=== PATIENT | female | born 1985 | race Caucasian/White ===

== ENCOUNTER 2020-12-22 07:23 | Emergency (ER) | payer OTHER, SELFPAY ==
--- NOTE | ~2020-12-22 | XR_ITS ---
EXAMINATION: XR ANKLE, LEFT CLINICAL INFORMATION: Fall with ankle injury COMPARISON: None TECHNIQUE: AP, lateral, and mortise views of the left ankle. FINDINGS: No significant soft tissue swelling. No radiographic evidence of acute displaced fracture or subluxation. No ankle joint effusion. No significant degenerative changes. There is a bilobed soft tissue calcification seen within the medial soft tissues of the lower one third lower leg measuring 1.2 cm in craniocaudal extent. XR/XR ankle LT 2V IMPRESSION: 1. No radiographic evidence of acute fracture subluxation. 2. Bilobed calcification within the soft tissues of the lower leg, nonspecific and of uncertain clinical significance.
[2020-12-22 07:37] VITALS: BP 151/73; PULSE 90; RESP 18; TEMP 36.7; O2SAT 100; BMI 41.2
--- NOTE | 2020-12-22 08:45 | ED.LOWEXIN ---
HPI - Extremity Injury (Lower) General Chief Complaint: Extremity Injury, Lower Stated Complaint: lt ankle injury Time Seen by Provider: 12/22/20 08:45 Source: patient Mode of arrival: ambulatory Limitations: no limitations History of Present Illness HPI Narrative: Walking out of her house down a steep step and her leg twisted and ended up underneath her. Patient complaining mostly of ankle pain and achilles pain. MD complaint: ankle injury Onset (ago): minute(s) Injury: Left: ankle Type of Injury: inversion Place: home Severity: moderate Associated symptoms: snap/pop sensation Related Data Previous Rx's Medication Instructions Recorded naproxen 500 mg tablet (Naprosyn) 500 mg PO BID #20 tab 12/22/20 Allergies Allergy/AdvReac Type Severity Reaction Status Date / Time ibuprofen AdvReac Gastrointestinal Verified 12/22/20 07:35 Upset strawberries Allergy Unknown Unknown Uncoded 12/22/20 07:35 Review of Systems Constitutional: Constitutional: Reports no additional constitutional complaints Eyes: Eyes: Reports no additional eye complaints ENT: Denies dizziness Cardiovascular: Cardiovascular: Reports no additional cardiovascular complaints Respiratory: Respiratory: Reports as per HPI Gastrointestinal: Gastrointestinal: Reports no additional gastrointestinal complaints Genitourinary: Genitourinary: Reports no additional female genitourinary complaints Musculoskeletal: Musculoskeletal: Reports no additional musculoskeletal complaints Integumentary/Breasts: Skin/Breast: Denies rash Neurologic: Reports system reviewed and no additional complaints, except as documented, Denies dizziness and Denies Sensory deficit (Neuro) Psychiatric: Psychiatric: Denies anxiety PMFSH Past Medical History Medical History No known health problems Social History Social History Advance Directives: No Patient : No Physical Exam Vital Signs: Vital Signs: Last Vital Signs Temp 98.1 F 12/22/20 07:37 Pulse 90 12/22/20 07:37 Resp 18 12/22/20 07:37 BP 151/73 H 12/22/20 07:37 Pulse Ox 100 12/22/20 07:37 Body Mass Index 41.2 Const: General: healthy appearing Nutritional Appearance: average body habitus Orientation/consciousness: oriented to person and patient oriented x3 Limitations: no limitations HENMT: Head: Yes normal to inspection Ears: external ears normal General nose exam: Normal external nose present Mouth: Normal oral and palatal mucosa present and oropharynx normal Throat: Yes posterior oropharynx normal Eyes: General: appearance normal, both eyes and all related structures Neck: Other: supple Neck: Yes normal visual inspection Chest: Chest palpation & inspection: normal inspection of the chest Resp: Auscultation: clear to auscultation bilaterally Cardio: Jugular venous distension: no JVD Rate: regular rate Rhythm: regular rhythm Heart sounds: S1 normal heart sound present and S2 normal heart sound present GI: Inspection: Yes normal to inspection Palpation (GI): Soft to palpation, nontender and No hepatosplenomegaly present Auscultation: normal bowel sounds : General: Yes no CVA tenderness Back/Spine/Pelvis: Back: no CVA tenderness Skin: General skin exam: no rashes or lesions noted Neuro: General: oriented to person and patient oriented x3 Cranial nerves: Yes CN's II-XII intact bilaterally Motor exam (neuro): 5/5 motor strength present throughout Sensory Exam: No Sensory deficit (Neuro) Extrem: Other: ankle: left lateral malleolous swelling with tenderness, Good DP and PT tenderness Psych: Appearance: grossly normal Course Reevaluation(s) Reevaluation #1: patient wth ankle sprain will place in splint and crutches Time: 08:52 MDM - Extremity Injury (Lower) Imaging Data ankle xray: Radiologist's impression: IMPRESSION: ? 1. No radiographic evidence of acute fracture subluxation. 2. Bilobed calcification within the soft tissues of the lower leg, nonspecific and of uncertain clinical significance. Discharge Plan Discharge Clinical Impression: Ankle sprain and strain Patient Disposition: Home, Self-Care Instructions: Ankle Sprain (ED), Crutch Instructions (ED) Prescriptions: New naproxen [Naprosyn] 500 mg tablet 500 mg PO BID Qty: 20 RF: 0 Referrals: Physician,None [Primary Care Provider] - 1 week
== END 2020-12-22 09:24 | disposition home or self-care (01) ==
PROVIDERS: Emergency Provider Emergency Medicine
DX: S93.402A Sprain of unspecified ligament of left ankle, initial encounter (principal); S96.912A Strain of unspecified muscle and tendon at ankle and foot level, left foot, initial encounter; X50.1XXA Overexertion from prolonged static or awkward postures, initial encounter; Y93.01 Activity, walking, marching and hiking; Y92.009 Unspecified place in unspecified non-institutional (private) residence as the place of occurrence of the external cause; Y99.9 Unspecified external cause status
CPT/HCPCS: 73600; 99283; 99284

== ENCOUNTER 2021-08-11 14:03 | Emergency (ER) | payer OTHER, SELFPAY ==
[2021-08-11 14:16] VITALS: BMI 41.0
[2021-08-11 14:56] LABS: COVID-19 Test Positive (Negative); IDNOW Serial# 16C4AD1C
[2021-08-11 15:03] LABS: Influenza A Negative (Negative); Influenza B2 Negative (Negative)
[2021-08-11 15:30] VITALS: O2SAT 98
--- NOTE | 2021-08-11 16:00 | PC.NURSE ---
pt was briefly evaluated upon arrival spo2 98% on RA, LS clear throughout.
--- NOTE | 2021-08-11 16:06 | PC.NURSE ---
attempted to place call out to pt to inform of covid status. listed number was incorrect, and pts listed contact did not answer the phone.
== END 2021-08-11 17:57 | disposition left against medical advice (07) ==
PROVIDERS: Emergency Provider Emergency Medicine
DX: R06.02 Shortness of breath (principal); R50.9 Fever, unspecified; Z20.822 Contact with and (suspected) exposure to COVID-19
CPT/HCPCS: 87502; 87635; 99282